=== PATIENT | female | born 1975 | race African-American/Black ===

== ENCOUNTER 2018-06-15 19:07 | Emergency (ER) | payer MEDICAID, MEDICARE ==
[~2018-06-15] VITALS: Ht 165.1 cm; Wt 118.0 kg
[~2018-06-15 19:07] MED LIST: AMLO10TA4 PO; MECL-109 PO
[2018-06-15] MEDS ORDERED: KETOROLAC 60MG/2ML VIAL IM ONE (22:45)
[2018-06-15] MEDS ORDERED: CYCLOBENZAPRINE 10MG TABLET PO ONE (22:45)
[2018-06-16] MEDS ORDERED: ACETAMINOPHEN WITH CODEINE 300/30MG TABLET PO ONE (01:45)
[2018-06-16 03:41] VITALS: BP 141/90
== END 2018-06-16 03:42 | disposition home or self-care (01) ==
LOC: ER 19:16
DX: M25.551 Pain in right hip (principal); Z96.641 Presence of right artificial hip joint; I10 Essential (primary) hypertension; M54.30 Sciatica, unspecified side
CPT/HCPCS: 73502; 81025; 96372; 99284; J1885; Z7610